=== PATIENT | female | born 1985 | race Hispanic/Latino ===

== ENCOUNTER 2016-12-10 00:40 | Emergency (ER) | payer OTHER ==
[2016-12-10] MEDS ORDERED: ATIVAN IM ONE (00:43)
[2016-12-10] MEDS ORDERED: HALDOL IM ONE ×2 (00:44→03:03)
[2016-12-10] MEDS ORDERED: BENADRYL IM ONE (00:44)
[2016-12-10] MEDS ORDERED: HALDOL ONE (00:46)
[2016-12-10] MEDS ORDERED: BENADRYL ONE (00:46)
[2016-12-10] MEDS ORDERED: VERSED IV ONE (00:47)
[2016-12-10 01:24] LABS: Basophils % (Auto) 0.5 % (0.0-1.8); Eosinophils % (Auto) 3.8 % (0.0-4.3); Hematocrit 37.7 % (30.3-42.9); Hemoglobin 12.5 gm/dl (10.1-14.3); Mean Corpuscular HGB Conc 33 % (30-34); Mean Corpuscular Hemoglobin 28 pg (28-32); Mean Corpuscular Volume 83 fl (79-97); Platelet Count 414 K/mm3 (140-440); Red Blood Count 4.52 M/mm3 (3.65-5.03); Red Cell Distribution Width 14.6 % (13.2-15.2); White Blood Count 9.4 K/mm3 (4.5-11.0)
[2016-12-10] MEDS ORDERED: KETALAR IM ONE (01:29)
[2016-12-10 01:42] LABS: Alanine Aminotransferase 14 units/L (7-56); Albumin 4.2 g/dL (3.9-5); Albumin/Globulin Ratio 1.2 %; Alkaline Phosphatase 64 units/L (35-129); Anion Gap 24 mmol/L; BUN/Creatinine Ratio 10; Bilirubin,Total < 0.20 mg/dL (0.1-1.2); Blood Urea Nitrogen 4 mg/dL (7-17); Calcium 8.5 mg/dL (8.4-10.2); Carbon Dioxide 20 mmol/L (22-30); Chloride 100.5 mmol/L (98-107); Glucose 113 mg/dL (65-100); Sodium 142 mmol/L (137-145); Total Protein 7.7 g/dL (6.3-8.2)
[2016-12-10 01:46] LABS: Potassium 2.9 mmol/L (3.6-5.0)
[2016-12-10] MEDS ORDERED: VERSED IV NR ×2 (02:00→04:00)
[2016-12-10] MEDS ORDERED: MAGNESIUM SULFATE 2GM/50ML 2 GM/50 ML BAG IV ONE (02:33)
--- NOTE | 2016-12-10 03:02 | Emergency Department Report ---
ED General Adult HPI - General Stated complaint: MH EVAL Time Seen by Provider: 12/10/16 00:43 - History of Present Illness Initial comments: Patient is a 30-year-old female past medical history of unknown psych disorder who presents with agitation and aggressive behavior. Patient was combative history is limited due to patient being psychotic. History obtained by EMS patient was slamming herself against the wall and punching and fighting people and threatening to kill herself. Patient is not oriented and is not able to have a conversation. Severity scale (0 -10): 10 - Related Data Allergies Allergy/AdvReac Type Severity Reaction Status Date / Time No Known Allergies Allergy Verified 12/10/16 01:11 ED Review of Systems ROS: Stated complaint: MH EVAL Other details as noted in HPI Comment: Unobtainable due to pts medical conditions (psychosis) ED Medical Decision Making - Lab Data Result diagrams: 12/10/16 01:01 12/10/16 01:01 Lab Results 12/10/16 12/10/16 12/10/16 Range/Units 01:01 01:01 01:01 WBC 9.4 (4.5-11.0) K/mm3 RBC 4.52 (3.65-5.03) M/mm3 Hgb 12.5 (10.1-14.3) gm/dl Hct 37.7 (30.3-42.9) % MCV 83 (79-97) fl MCH 28 (28-32) pg MCHC 33 (30-34) % RDW 14.6 (13.2-15.2) % Plt Count 414 (140-440) K/mm3 Lymph % (Auto) 36.9 H (13.4-35.0) % Preble % (Auto) 5.4 (0.0-7.3) % Eos % (Auto) 3.8 (0.0-4.3) % Baso % (Auto) 0.5 (0.0-1.8) % Lymph # 3.5 (1.2-5.4) K/mm3 Preble # 0.5 (0.0-0.8) K/mm3 Eos # 0.4 (0.0-0.4) K/mm3 Baso # 0.0 (0.0-0.1) K/mm3 Seg Neutrophils % 53.4 (40.0-70.0) % Seg Neutrophils # 5.0 (1.8-7.7) K/mm3 Sodium 142 (137-145) mmol/L Potassium 2.9 L* (3.6-5.0) mmol/L Chloride 100.5 (98-107) mmol/L Carbon Dioxide 20 L (22-30) mmol/L Anion Gap 24 mmol/L BUN 4 L (7-17) mg/dL Creatinine 0.4 L (0.7-1.2) mg/dL Estimated GFR > 60 ml/min BUN/Creatinine Ratio 10 % Glucose 113 H (65-100) mg/dL Calcium 8.5 (8.4-10.2) mg/dL Total Bilirubin < 0.20 (0.1-1.2) mg/dL AST 14 (5-40) units/L ALT 14 (7-56) units/L Alkaline Phosphatase 64 (35-129) units/L Total Protein 7.7 (6.3-8.2) g/dL Albumin 4.2 (3.9-5) g/dL Albumin/Globulin Ratio 1.2 % HCG, Quant < 2 (0-4) mIU/mL Plasma/Serum Alcohol (0-0.07) gm% 12/10/ Range/Units 01:01 WBC (4.5-11.0) K/mm3 RBC (3.65-5.03) M/mm3 Hgb (10.1-14.3) gm/dl Hct (30.3-42.9) % MCV (79-97) fl MCH (28-32) pg MCHC (30-34) % RDW (13.2-15.2) % Plt Count (140-440) K/mm3 Lymph % (Auto) (13.4-35.0) % Pre[place] % (Auto) (0.0-7.3) % Eos % (Auto) (0.0-4.3) % Baso % (Auto) (0.0-1.8) % Lymph # (1.2-5.4) K/mm3 Preble # (0.0-0.8) K/mm3 Eos # (0.0-0.4) K/mm3 Baso # (0.0-0.1) K/mm3 Seg Neutrophils % (40.0-70.0) % Seg Neutrophils # (1.8-7.7) K/mm3 Sodium (137-145) mmol/L Potassium (3.6-5.0) mmol/L Chloride (98-107) mmol/L Carbon Dioxide (22-30) mmol/L Anion Gap mmol/L BUN (7-17) mg/dL Creatinine (0.7-1.2) mg/dL Estimated GFR ml/min BUN/Creatinine Ratio % Glucose (65-100) mg/dL Calcium (8.4-10.2) mg/dL Total Bilirubin (0.1-1.2) mg/dL AST (5-40) units/L ALT (7-56) units/L Alkaline Phosphatase (35-129) units/L Total Protein (6.3-8.2) g/dL Albumin (3.9-5) g/dL Albumin/Globulin Ratio % HCG, Quant (0-4) mIU/mL Plasma/Serum Alcohol 0.36 H (0-0.07) gm% - Medical Decision Making Chief medical diagnosis: Psychosis Differential medical diagnosis: Alcohol intoxication, substance induced mood disorder CBC, CMP, IV potassium, IM Haldol, IM Ativan, IM ketamine Due to patient's psychotic and aggressive behavior patient will be a 1013. Critical care attestation.: If time is entered above; I have spent that time in minutes in the direct care of this critically ill patient, excluding procedure time. ED Disposition Clinical Impression: Hypokalemia, Aggressive behavior Psychosis Qualifiers: Psychosis type: other Qualified Code(s): F28 - Other psychotic disorder not due to a substance or known physiological condition Alcohol intoxication Qualifiers: Complication of substance-induced condition: with delirium Qualified Code(s): F10.921 - Alcohol use, unspecified with intoxication delirium Disposition: DC/TX-65 PSY HOSP/PSY UNIT Is pt being admited?: No Does the pt Need Aspirin: No Condition: Stable Referrals: PRIMARY CARE, [Primary Care Provider] - 3-5 Days
[2016-12-10] MEDS: KCL 10MEQ/100ML 10 MEQ/100 ML BAG IV SCH ×3 (03:20→05:01)
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
[2016-12-10] MEDS ORDERED: MOTRIN PO ONE (20:52)
[2016-12-10] MEDS: LaMICtal PO SCH (22:30)
[2016-12-10] MEDS: CYMBALTA PO SCH (22:30)
[2016-12-11] MEDS ORDERED: MOTRIN PO ONE ×2 (07:57→07:58)
--- NOTE | 2016-12-11 13:22 | Progress Note ---
Subjective - Reason for Consult Consult date: 12/11/16 Reason for consult: Psychiatry Follow-up - Chief Complaint Chief complaint: "I feel better" 30 year old female brought in by Police on a 1013 due to altered mental status. Today patient is calm and cooperative during the assessment. She stated having marital issues with her recently that have caused her to be depressed with SI's. She stated having an alcohol addiction in the past, but relapsed lately because of her "marital problems." She stated wanting sobriety. She denies SI/HI's and AVH's. She rate her depression 4/10, with 10 being the worse. She denies any side effect of her medications. Mental Status Exam - Vital signs Last Vital Signs Temp 98.6 F 12/11/16 07:45 Pulse 98 H 12/11/16 07:45 Resp 18 12/11/16 07:45 BP 138/77 12/11/16 07:45 Pulse Ox 98 12/10/16 20:17 - Exam Narrative exam: MSE: Appearance: calm, cooperative Behavior: regular eye contact Speech: regular rate and tone Mood: :"better" Affect: congruent to mood Thought Process: circumstantial Thought Content: denies SI/HI's and AVH's Motor Activity: lying in bed Cognition: A/OP x 3 Insight: variable Judgment: variable Assessment and Plan Impression: Historical Dx: Borderline Personality DO. MDD severe type. Alcohol Use DO. Today patient is calm and cooperative during the assessment. No alcohol withdrawals noted during the assessment. Recommendation/Plan: Continue 1013 and transfer to inpatient psychiatric facility. Continue Cymbalta 90 mg PO Daily and Lamictal 100 mg PO daily. Discussed possible side effects of Lamictal (Rash/SJS). Discussed possible suicidality/medication induced rosaura with patient reference Cymbalta.
[2016-12-11] MEDS ORDERED: MOTRIN PO PRN (20:16)
[2016-12-11] MEDS ORDERED: TYLENOL PO PRN (20:16)
[2016-12-11] MEDS: LaMICtal PO SCH (22:36)
[2016-12-11] MEDS: CYMBALTA PO SCH (22:36)
[2016-12-12 08:47] VITALS: BP 133/85
--- NOTE | 2016-12-12 12:14 | Progress Note ---
Subjective - Reason for Consult Consult date: 12/12/16 Reason for consult: Psychiatry Follow-up - Chief Complaint Chief complaint: "I need to do better" 30 year old female brought in by Police on a 1013 due to altered mental status. Today patient is calm and cooperative during the assessment. She stated that she plan to make better decisions when she find herself in crisis. She rate her depression 5/10, with 10 being the worse. She denies SI/HI's and AVH's. She denies any side effects of her medications. Mental Status Exam - Vital signs Last Vital Signs Temp 99.1 F 12/11/16 20:38 Pulse 93 H 12/12/16 07:55 Resp 18 12/12/16 07:55 BP 133/85 12/12/16 07:55 Pulse Ox 100 12/11/16 22:26 - Exam Narrative exam: MSE: Appearance: calm, cooperative Behavior: regular eye contact Speech: regular rate and tone Mood: :"okay" Affect: congruent to mood Thought Process: circumstantial Thought Content: denies SI/HI's and AVH's Motor Activity: lying in bed Cognition: A/O x 3 Insight: variable Judgment: variable Assessment and Plan Impression: Historical Dx: Borderline Personality DO. MDD severe type. Alcohol Use DO. Today patient is calm and cooperative during the assessment. No alcohol withdrawals noted during the assessment. Hx of self-injury. Recommendation/Plan: Continue 1013 with placement to [facility] today. Continue Cymbalta 90 mg PO Daily and Lamictal 100 mg PO daily. Discussed possible side effects of Lamictal (Rash/SJS). Discussed possible suicidality/ medication induced rosaura with patient reference Cymbalta. Discussed generalized coping skills with patient.
[2016-12-12 12:19] LABS: Bilirubin,Urine NEG (Negative); Blood,Urine NEG (Negative); Ketones,Urine NEG (Negative); Leukocyte Esterase,Urine NEG (Negative); Mucus,Urine FEW /HPF; Nitrite,Urine NEG (Negative); Protein,Urine <15 mg/dL mg/dL (Negative); Urobilinogen,Urine < 2.0 mg/dL (<2.0); WBC,Urine < 1.0 /HPF (0.0-6.0)
== END 2016-12-12 14:03 ==
LOC: EEVIPCON 00:40 → ED 00:40
DX: F28 Other psychotic disorder not due to a substance or known physiological condition (principal); F10.921 Alcohol use, unspecified with intoxication delirium; E87.6 Hypokalemia; F32.9 Major depressive disorder, single episode, unspecified; R10.2 Pelvic and perineal pain; Z79.899 Other long term (current) drug therapy
CPT/HCPCS: 36415; 80053; 81001; 84702; 85025; 96365; 96368; 96372; 96375; 96376; 99285; G0480; J1200; J1630; J2250; J3475; J3480; 51702; 80320